=== PATIENT | male | born 1980 | race Caucasian/White ===

== ENCOUNTER 2020-08-28 14:13 | Emergency (ER) | payer OTHER ==
[~2020-08-28 14:13] MED LIST: CLEOCIN 150MG150 MG PO; FLEXERIL 10 MG10 MG PO; IBUPROFEN600 MG PO; PERCOCET 5/325 T1 EA PO; TESSALON PERLE100 MG PO; VENTOLIN HFA 66.7 GM INH; ZITHROMAX250 MG PO
[2020-08-28] MEDS ORDERED: NAPROSYN500 MG PO (15:39)
[2020-10-15] MEDS ORDERED: CORTIZONE 1028 GM TP (17:33)
== END 2020-08-28 16:04 | disposition home or self-care (01) ==
LOC: ER1 14:13
DX: S50.01XA Contusion of right elbow, initial encounter (principal); F17.200 Nicotine dependence, unspecified, uncomplicated; J44.9 Chronic obstructive pulmonary disease, unspecified; W10.9XXA Fall (on) (from) unspecified stairs and steps, initial encounter; Y92.009 Unspecified place in unspecified non-institutional (private) residence as the place of occurrence of the external cause
CPT/HCPCS: 73080; 99283

== ENCOUNTER → 2020-10-15 | Emergency (ER) | payer OTHER ==
[~2020-10-15] MED LIST changes: +CORTIZONE 1028 GM TP; +ELIMITE 5% CREA60 GM TOP; +NAPROSYN500 MG PO
== END | disposition home or self-care (01) ==
LOC: ER1 17:22
DX: S30.860A Insect bite (nonvenomous) of lower back and pelvis, initial encounter (principal); W57.XXXA Bitten or stung by nonvenomous insect and other nonvenomous arthropods, initial encounter
CPT/HCPCS: 99281

== ENCOUNTER 2020-10-21 13:05 | Emergency (ER) | payer OTHER ==
[~2020-10-21 13:05] MED LIST changes: -ELIMITE 5% CREA60 GM TOP
[2020-10-21] MEDS ORDERED: ELIMITE 5% CREA60 GM TOP (15:04)
== END 2020-10-21 15:06 | disposition home or self-care (01) ==
LOC: ER1 13:05
DX: R21 Rash and other nonspecific skin eruption (principal); F17.200 Nicotine dependence, unspecified, uncomplicated
CPT/HCPCS: 99282

== ENCOUNTER 2020-12-27 10:24 | Emergency (ER) | payer OTHER ==
[~2020-12-27 10:24] MED LIST changes: +ELIMITE 5% CREA60 GM TOP
[2020-12-27] MEDS ORDERED: NAPROSYN500 MG PO (14:49)
[2020-12-27] MEDS ORDERED: OMNICEF 300 MG300 MG PO (14:49)
== END 2020-12-27 14:55 | disposition home or self-care (01) ==
LOC: ER1 10:24
DX: S56.921A Laceration of unspecified muscles, fascia and tendons at forearm level, right arm, initial encounter (principal); J44.9 Chronic obstructive pulmonary disease, unspecified; W20.8XXA Other cause of strike by thrown, projected or falling object, initial encounter; F17.200 Nicotine dependence, unspecified, uncomplicated
CPT/HCPCS: 12002; 73090; 99283

== ENCOUNTER 2021-01-12 08:37 | Emergency (ER) | payer OTHER ==
[~2021-01-12 08:37] MED LIST changes: +OMNICEF 300 MG300 MG PO
[2021-01-12 09:32] LABS: HEMOGLOBIN 15.9 gm/dl (14.0-17.5); RED BLOOD COUNT 4.88 M/UL (4.20-5.50); WHITE BLOOD COUNT 8.5 K/UL (4.5-11.0)
[2021-01-12 10:00] LABS: BUN/CREATININE RATIO 7 (0-10)
[2021-01-12] MEDS ORDERED: PREDNISONE 20 M20 MG PO (11:52)
[2021-01-12] MEDS ORDERED: PROAIR HFA8.5 GM INH (11:54)
== END 2021-01-12 12:15 | disposition home or self-care (01) ==
LOC: ER1 08:37
PROVIDERS: Student in an Organized Health Care Education/Training Program
DX: J44.9 Chronic obstructive pulmonary disease, unspecified (principal); F17.210 Nicotine dependence, cigarettes, uncomplicated
CPT/HCPCS: 71045; 80053; 82550; 82553; 83874; 84484; 85025; 93005; 94664; 96374; 96375; 99285; J1100; J1885; J7030

== ENCOUNTER 2021-08-09 23:21 | Emergency (ER) | payer OTHER ==
[~2021-08-09 23:21] MED LIST changes: +PREDNISONE 20 M20 MG PO; +PROAIR HFA8.5 GM INH
== END 2021-08-10 03:25 | disposition home or self-care (01) ==
LOC: ER1 23:21
DX: N48.22 Cellulitis of corpus cavernosum and penis (principal); F17.210 Nicotine dependence, cigarettes, uncomplicated
CPT/HCPCS: 99283; J0561; J2540

== ENCOUNTER 2021-09-06 20:01 | Emergency (ER) | payer OTHER ==
[2021-09-06 21:07] LABS: HEMOGLOBIN 13.2 gm/dl (14.0-17.5); RED BLOOD COUNT 4.21 M/UL (4.20-5.50); WHITE BLOOD COUNT 7.1 K/UL (4.5-11.0)
[2021-09-06 21:38] LABS: BUN/CREATININE RATIO 21 (0-10)
[2021-09-07] MEDS ORDERED: ZOFRAN ODT 4 MG4 MG PO (00:19)
[2021-09-08 09:14] LABS: HBSAG SCREEN Positive (Negative); HCV AB 0.1 (0.0-0.9); HEP A AB, IGM Negative (Negative); HEP B CORE AB, IGM Positive (Negative)
== END 2021-09-07 00:45 ==
LOC: ER1 20:01
PROVIDERS: Family Medicine
DX: B17.9 Acute viral hepatitis, unspecified (principal); F17.200 Nicotine dependence, unspecified, uncomplicated
CPT/HCPCS: 80053; 80074; 81001; 82140; 83690; 85025; 85610; 96374; 96375; 99284; C9113; J2405; Q9967

== ENCOUNTER 2021-09-14 20:09 | Emergency (ER) | payer OTHER ==
[~2021-09-14 20:09] MED LIST changes: +ZOFRAN ODT 4 MG4 MG PO
[2021-09-14 20:59] LABS: HEMOGLOBIN 14.3 gm/dl (14.0-17.5); RED BLOOD COUNT 4.64 M/UL (4.20-5.50); WHITE BLOOD COUNT 10.2 K/UL (4.5-11.0)
[2021-09-14 21:33] LABS: BUN/CREATININE RATIO 18 (0-10)
== END 2021-09-15 04:25 | disposition home or self-care (01) ==
LOC: ER1 20:09
PROVIDERS: Family Medicine
DX: B19.10 Unspecified viral hepatitis B without hepatic coma (principal); R17 Unspecified jaundice; F17.200 Nicotine dependence, unspecified, uncomplicated; Z51.81 Encounter for therapeutic drug level monitoring
CPT/HCPCS: 80053; 81001; 82140; 83690; 85025; 85610; 85730; 99285; Q9967

== ENCOUNTER 2021-10-26 17:24 | Emergency (ER) | payer OTHER ==
[2021-10-26 18:40] LABS: HEMOGLOBIN 13.6 gm/dl (14.0-17.5); RED BLOOD COUNT 4.08 M/UL (4.20-5.50); WHITE BLOOD COUNT 9.6 K/UL (4.5-11.0)
[2021-10-26 19:10] LABS: BUN/CREATININE RATIO 16 (0-10)
[2021-10-26] MEDS ORDERED: PROTONIX 40 MG40 M1 PO (21:25)
== END 2021-10-26 21:56 | disposition home or self-care (01) ==
LOC: ER1 17:24
PROVIDERS: Physician Assistant Medical
DX: K29.00 Acute gastritis without bleeding (principal); F17.210 Nicotine dependence, cigarettes, uncomplicated
CPT/HCPCS: 71045; 80053; 82550; 82553; 83690; 84484; 85025; 93005; 99284